=== PATIENT | male | born 2000 | race Caucasian/White ===

== ENCOUNTER 2024-02-16 11:01 | Emergency (ER) | payer OTHER ==
[~2024-02-16] VITALS: Ht 170.2 cm; Wt 73.2 kg
[2024-02-16 12:52] LABS: BASO % 0.3 % (0.0-1.0); EOS # 0.4 10^3/uL (0.0-0.5); EOS % 4.2 % (0.0-3.0); HEMATOCRIT 44.1 % (42.0-52.0); HEMOGLOBIN 14.4 g/dl (13.5-17.5); LYMPH # 1.5 10^3/uL (1.5-5.0); LYMPH % 16.6 % (24.0-44.0); MEAN CORPUSCULAR HEMOGLOBIN 28.6 pg (27.0-33.0); MEAN CORPUSCULAR HGB CONC 32.7 g/dl (32.0-36.5); MEAN CORPUSCULAR VOLUME 87.5 fl (80.0-96.0); MONO # 0.6 10^3/uL (0.0-0.8); MONO % 6.2 % (2.0-8.0); NEUTROPHILS # 6.4 10^3/uL (1.5-8.5); NEUTROPHILS % 72.4 % (36.0-66.0); PLATELET COUNT, AUTOMATED 359 10^3/uL (150-450); RED BLOOD COUNT 5.04 10^6/uL (4.30-6.10); WHITE BLOOD COUNT 8.8 10^3/uL (4.0-10.0)
[2024-02-16 13:11] LABS: LIPASE 24 U/L (12-53)
[2024-02-16 13:14] LABS: ALBUMIN 4.1 G/DL (3.2-5.2); ALKALINE PHOSPHATASE 32 U/L (46-116); ALT/SGPT 25 U/L (7.0-40); AST/SGOT 11 U/L (<34); BILIRUBIN,DIRECT 0.3 MG/DL (<0.4); BILIRUBIN,TOTAL 0.7 MG/DL (0.3-1.2); BLOOD UREA NITROGEN 10 MG/DL (9-23); CALCIUM LEVEL 9.6 MG/DL (8.5-10.1); CARBON DIOXIDE LEVEL 30 MMOL/L (20-31); CHLORIDE LEVEL 105 MMOL/L (98-107); CREATININE FOR GFR 1.08 MG/DL (0.70-1.30); GLOMERULAR FILTRATION RATE > 60.0 (>60); GLUCOSE, FASTING 113 MG/DL (60-100); POTASSIUM SERUM 4.5 MMOL/L (3.5-5.1); SODIUM LEVEL 140 MMOL/L (136-145); TOTAL PROTEIN 7.2 G/DL (5.7-8.2)
[2024-02-16 13:41] LABS: HIV 1&2 SCREEN NEGATIVE (NEGATIVE)
[2024-02-16 18:36] VITALS: BP 120/75; TEMP 98.4; O2SAT 97
== END 2024-02-16 18:42 | disposition home or self-care (01) ==
LOC: M ED 11:01
DX: R10.31 Right lower quadrant pain (principal); R10.32 Left lower quadrant pain; K92.2 Gastrointestinal hemorrhage, unspecified

== ENCOUNTER 2024-06-28 08:20 | Day surgery (SDC) | payer OTHER ==
[~2024-06-28] VITALS: Ht 170.2 cm; Wt 67.1 kg
[~2024-06-28 08:20] MED LIST: DICY20TA20 PO; MESA1.2T PO; NS 1,000 ML IV ONE
[2024-06-28 11:24] VITALS: TEMP 97.5
[2024-06-28 11:42] VITALS: BP 118/66; O2SAT 100
== END 2024-06-28 11:53 | disposition home or self-care (01) ==
LOC: M OPP 08:20
PROVIDERS: ATTEND Internal Medicine Gastroenterology
DX: K51.50 Left sided colitis without complications (principal)

== ENCOUNTER 2024-07-02 09:38 | Emergency (ER) | payer OTHER ==
[~2024-07-02] VITALS: Ht 170.2 cm; Wt 65.5 kg
[~2024-07-02 09:38] MED LIST changes: -NS 1,000 ML IV ONE
[2024-07-02 09:41] VITALS: BP 123/77; TEMP 97.5; O2SAT 98
[2024-07-02] MEDS ORDERED: PROB250C PO (09:44)
[2024-07-02 11:30] LABS: BASO % 0.3 % (0.0-1.0); EOS # 0.3 10^3/uL (0.0-0.5); EOS % 1.6 % (0.0-3.0); HEMATOCRIT 39.8 % (42.0-52.0); HEMOGLOBIN 12.7 g/dl (13.5-17.5); LYMPH # 1.6 10^3/uL (1.5-5.0); LYMPH % 10.2 % (24.0-44.0); MEAN CORPUSCULAR HEMOGLOBIN 26.9 pg (27.0-33.0); MEAN CORPUSCULAR HGB CONC 31.9 g/dl (32.0-36.5); MEAN CORPUSCULAR VOLUME 84.3 fl (80.0-96.0); MONO # 1.4 10^3/uL (0.0-0.8); MONO % 9.1 % (2.0-8.0); NEUTROPHILS # 12.4 10^3/uL (1.5-8.5); NEUTROPHILS % 78.4 % (36.0-66.0); PLATELET COUNT, AUTOMATED 646 10^3/uL (150-450); RED BLOOD COUNT 4.72 10^6/uL (4.30-6.10); WHITE BLOOD COUNT 15.9 10^3/uL (4.0-10.0)
[2024-07-02] MEDS ORDERED: ISOVUE-370 76% 100ML VIAL As Ordered ONE (11:43)
[2024-07-02 12:01] LABS: ALBUMIN 3.8 G/DL (3.2-5.2); BILIRUBIN,DIRECT 0.1 MG/DL (<0.4); BILIRUBIN,TOTAL 0.4 MG/DL (0.3-1.2); TOTAL PROTEIN 8.1 G/DL (5.7-8.2)
[2024-07-02] MEDS: ACETAMINOPHEN 500 MG TAB PO ONE (12:29)
[2024-07-02] MEDS ORDERED: PRED20TA PO (13:24)
[2024-07-02] MEDS ORDERED: PRED10PA2 PO (13:29)
== END 2024-07-02 13:44 | disposition home or self-care (01) ==
LOC: M ED 09:38
DX: K51.919 Ulcerative colitis, unspecified with unspecified complications (principal); I10 Essential (primary) hypertension; Z79.52 Long term (current) use of systemic steroids; Z79.899 Other long term (current) drug therapy
CPT/HCPCS: 36415; 74177; 80047; 80076; 83690; 85025; 99284; Q9967

== ENCOUNTER 2024-07-30 14:22 | Outpatient (CLI) | payer OTHER ==
[~2024-07-30] VITALS: Ht 170.2 cm; Wt 72.7 kg
[~2024-07-30 14:22] MED LIST changes: +PRED10PA2 PO; +PRED20TA PO; +PROB250C PO
[2024-07-30 14:40] VITALS: BP 130/73; O2SAT 99
[2024-07-30] MEDS: VEDOLIZUMAB 300 MG in NS 250 ML IV ONE (15:15)
[2024-07-30 16:10] VITALS: BP 131/72; O2SAT 100
== END 2024-07-30 16:10 ==
LOC: M INFU 14:22
PROVIDERS: ATTEND Internal Medicine Gastroenterology
DX: K51.90 Ulcerative colitis, unspecified, without complications (principal)
CPT/HCPCS: 96365; J3380

== ENCOUNTER 2024-08-03 12:03 | Emergency (ER) | payer OTHER ==
[~2024-08-03] VITALS: Ht 170.2 cm; Wt 72.7 kg
[2024-08-03 14:35] LABS: BASO % 0.3 % (0.0-1.0); EOS # 0.7 10^3/uL (0.0-0.5); EOS % 4.6 % (0.0-3.0); HEMATOCRIT 32.6 % (42.0-52.0); LYMPH # 2.2 10^3/uL (1.5-5.0); LYMPH % 15.5 % (24.0-44.0); MEAN CORPUSCULAR HEMOGLOBIN 24.3 pg (27.0-33.0); MEAN CORPUSCULAR HGB CONC 30.7 g/dl (32.0-36.5); MEAN CORPUSCULAR VOLUME 79.3 fl (80.0-96.0); MONO # 1.4 10^3/uL (0.0-0.8); MONO % 9.7 % (2.0-8.0); NEUTROPHILS # 9.7 10^3/uL (1.5-8.5); NEUTROPHILS % 69.5 % (36.0-66.0); PLATELET COUNT, AUTOMATED 610 10^3/uL (150-450); RED BLOOD COUNT 4.11 10^6/uL (4.30-6.10)
[2024-08-03] MEDS ORDERED: [UNRECOGNIZED DRUG - CODE] SQ (14:46)
[2024-08-03 14:58] LABS: ALBUMIN 3.7 G/DL (3.2-5.2); BILIRUBIN,DIRECT 0.2 MG/DL (<0.4); BILIRUBIN,TOTAL 0.7 MG/DL (0.3-1.2); TOTAL PROTEIN 7.9 G/DL (5.7-8.2)
[2024-08-03 17:36] VITALS: BP 147/90; TEMP 98.4; O2SAT 99
[2024-08-03] MEDS ORDERED: ONDA-282 PO (17:36)
[2024-08-03] MEDS: ONDANSETRON 4MG ORAL DISINTEGRATING TAB PO ONE (17:36)
[2024-08-03] MEDS: predniSONE 10MG TAB PO ONE (17:36)
[2024-08-03] MEDS ORDERED: PRED10TA2 PO (17:36)
== END 2024-08-03 17:44 | disposition home or self-care (01) ==
LOC: M ED 12:03
DX: K51.90 Ulcerative colitis, unspecified, without complications (principal); Z79.899 Other long term (current) drug therapy; Z79.52 Long term (current) use of systemic steroids
CPT/HCPCS: 36415; 80047; 80076; 83690; 85025; 99283; J7512

== ENCOUNTER 2024-08-13 15:30 | Outpatient (CLI) | payer OTHER ==
[~2024-08-13] VITALS: Ht 170.2 cm; Wt 72.0 kg
[2024-08-13 13:25] VITALS: BP 128/74; O2SAT 100
[~2024-08-13 15:30] MED LIST changes: +ONDA-282 PO; +PRED10TA2 PO; +[UNRECOGNIZED DRUG - CODE] SQ
[2024-08-13] MEDS: VEDOLIZUMAB 300 MG in NS 250 ML IV ONE (16:19)
[2024-08-13 16:55] VITALS: BP 128/78; O2SAT 99
== END 2024-08-13 16:55 ==
LOC: M INFU 15:30
PROVIDERS: ATTEND Internal Medicine Gastroenterology
DX: K51.90 Ulcerative colitis, unspecified, without complications (principal)
CPT/HCPCS: 96365; J3380

== ENCOUNTER 2024-09-10 15:10 | Outpatient (CLI) | payer OTHER ==
[~2024-09-10] VITALS: Ht 170.2 cm; Wt 75.0 kg
[2024-09-10 15:10] VITALS: BP 136/72; O2SAT 100
[2024-09-10] MEDS: VEDOLIZUMAB 300 MG in NS 250 ML IV ONE (16:26)
[2024-09-10 17:05] VITALS: BP 122/71; O2SAT 100
== END 2024-09-10 17:05 ==
LOC: M INFU 15:10
PROVIDERS: ATTEND Internal Medicine Gastroenterology
DX: K51.90 Ulcerative colitis, unspecified, without complications (principal)
CPT/HCPCS: 96365; J3380

== ENCOUNTER 2024-11-05 12:30 | Outpatient (CLI) | payer OTHER ==
[~2024-11-05] VITALS: Ht 170.2 cm; Wt 72.3 kg
[2024-11-05 13:40] VITALS: BP 128/71; O2SAT 100
[2024-11-05] MEDS: VEDOLIZUMAB 300 MG in NS 250 ML IV ONE (14:18)
[2024-11-05 14:59] VITALS: BP 132/68; O2SAT 99
== END 2024-11-05 15:00 | disposition home or self-care (01) ==
LOC: M INFU 12:30
PROVIDERS: ATTEND Internal Medicine Gastroenterology
DX: K51.90 Ulcerative colitis, unspecified, without complications (principal)
CPT/HCPCS: 96365; J3380

== ENCOUNTER 2024-12-31 08:56 | Outpatient (CLI) | payer OTHER ==
[~2024-12-31] VITALS: Ht 170.2 cm; Wt 70.4 kg
[2024-12-31 09:00] VITALS: BP 128/77; O2SAT 100
[2024-12-31] MEDS: VEDOLIZUMAB 300 MG in NS 250 ML IV ONE (09:36)
[2024-12-31 10:11] VITALS: BP 121/70; O2SAT 100
== END 2024-12-31 10:15 ==
LOC: M INFU 08:56
PROVIDERS: ATTEND Internal Medicine Gastroenterology
DX: K51.90 Ulcerative colitis, unspecified, without complications (principal)
CPT/HCPCS: 96365; J3380